=== PATIENT | female | born 2000 | race African-American/Black ===

== ENCOUNTER 2019-06-07 10:26 | Emergency (ER) | payer MEDICAID ==
[~2019-06-07] VITALS: Ht 165.1 cm; Wt 65.0 kg
[2019-06-07 11:33] LABS: CLARITY URINE CLEAR (CLEAR); COLOR URINE YELLOW (YELLOW); KETONES URINE TRACE (NEGATIVE); LEUKOCYTE ESTERASE URINE 3+ (NEGATIVE); NITRITE URINE NEGATIVE (NEGATIVE); OCCULT BLOOD URINE NEGATIVE (NEGATIVE); PH URINE 6.5 (4.5-8.0); PROTEIN URINE NEGATIVE (NEGATIVE); SPECIFIC GRAVITY URINE 1.008 (1.005-1.030)
[2019-06-07 13:04] VITALS: BP 132/89
== END 2019-06-07 13:05 | disposition home or self-care (01) ==
LOC: ER 10:26
DX: N39.0 Urinary tract infection, site not specified (principal); A63.8 Other specified predominantly sexually transmitted diseases
CPT/HCPCS: 81003; 81025; 87491; 87591; 99283